=== PATIENT | male | born 1990 | race Caucasian/White ===

== ENCOUNTER → 2018-03-25 07:42 | Outpatient (CLI) | payer OTHER, MEDICAID, SELFPAY ==
--- NOTE | 2018-03-25 07:45 | DI.US.S_ITS ---
PROCEDURE: US SCROTUM INDICATIONS: SCROTAL LUMP TECHNIQUE: Real-time scanning was performed of the scrotum and testicles, with image documentation. Color and pulse Doppler interrogation was performed of both testicles. COMPARISON: [facility], , TESTICLE IMAGING, 04/18/2015, 13:18. [facility], , TESTICLE IMAGING, 10/31/2010, 10:40. FINDINGS: Right: Testicle is normal in size at 5.0 x 2.6 x 3.6 cm, and homogenous in echotexture. Epididymis is normal in overall size and morphology. No hydrocele or varicoceles. Overlying scrotal skin is normal in thickness. Previously seen epididymal cysts have resolved in the interim. Left: Testicle is normal in size at 4.6 x 2.9 x 3.1 cm, and homogeneous in echotexture. Epididymis is normal in overall size and morphology. No hydrocele or varicoceles. Overlying scrotal skin is normal in thickness. Previously seen epididymal cyst have resolved in the interim. Doppler: Color and pulse Doppler demonstrate normal and symmetric arterial flow in both testicles. IMPRESSION: 1. No ultrasound findings to explain the patient's palpable scrotal lump. 2. Previously seen epididymal cysts appear to have resolved in the interim. 3. No testicular mass, epididymal orchitis, or evidence of testicular torsion. Dictated by: Yazan Self M.D. on 03/25/2018 at 8:46 Approved by: Yazan Self M.D. on 03/25/2018 at 8:52
== END ==
PROVIDERS: Visit Provider Registered Nurse
DX: N50.9 Disorder of male genital organs, unspecified (principal)
CPT/HCPCS: 76870

== ENCOUNTER → 2018-05-31 08:03 | Outpatient (CLI) | payer OTHER, MEDICAID, SELFPAY ==
[2018-05-31 08:57] LABS: Alanine Aminotransferase 29 IU/L (21-72); Albumin 4.7 g/dL (3.5-5.0); Albumin Globulin Ratio 1.7 (1.0-2.8); Alkaline Phosphatase 53 U/L (38-126); Aspartate Aminotransferase 23 IU/L (17-59); BUN Creatinine Ratio 11.1 (6-22); Bilirubin Total 0.6 mg/dL (0.2-1.3); Blood Urea Nitrogen 10 mg/dL (9-20); Calcium 9.6 mg/dL (8.4-10.2); Carbon Dioxide 30 mmol/L (22-32); Chloride 101 mmol/L (98-107); Cholesterol 168 mg/dL (140-199); Estimated Glomerular Filt Rate > 60.0 mL/min (>60); Globulin 2.7 g/dL (1.7-4.1); Glucose 73 mg/dL (70-100); HDL Cholesterol 49 mg/dL (40-60); HEMOLYSIS < 15 (0-50); LDL Cholesterol Calculated 101 mg/dL (<100); Potassium 4.4 mmol/L (3.4-5.1); Sodium 142 mmol/L (137-145); Total Protein 7.4 g/dL (6.3-8.2); Triglycerides 89 mg/dL (35-150)
[2018-05-31 09:10] LABS: Add Manual Diff / Slide Review NO; Basophils Absolute Auto 100 /uL (0-100); Basophils Percent Auto 1.3 % (0-2); Eosinophils Absolute Auto 100 /uL (0-450); Eosinophils Percent Auto 2.5 % (2-4); Hematocrit 45.8 % (41-53); Hemoglobin 15.6 g/dL (13.5-17.5); Lymphocytes Absolute Auto 1400 /uL (1100-4500); Lymphocytes Percent Auto 28.5 % (25-40); Mean Corpuscular Hemoglobin 32.8 PG (26-34); Mean Corpuscular Volume 96.5 fL (80-100); Monocytes Absolute Auto 400 /uL (0-900); Monocytes Percent Auto 7.7 % (3-14); Neutrophils Absolute Auto 2900 /uL (1500-7000); Platelet Count 194 X10^3/uL (150-400); Red Blood Cell Count 4.74 X10^6/uL (4.5-5.9); Red Cell Distribution Width 12.4 % (11.6-14.8); White Blood Cell Count 4.8 X10^3/uL (4.5-11.0)
[2018-05-31 10:39] LABS: TSH w/ Reflex to FT4 1.94 uIU/mL (0.47-4.68)
== END ==
PROVIDERS: PCP Nurse Practitioner; Visit Provider Nurse Practitioner
DX: R07.1 Chest pain on breathing (principal)
CPT/HCPCS: 36415; 80053; 80061; 84443; 85025

== ENCOUNTER → 2018-05-31 08:31 | Outpatient (CLI) | payer OTHER, MEDICAID, SELFPAY ==
--- NOTE | 2018-05-31 08:34 | DI.RAD.S_ITS ---
PROCEDURE: XR CHEST 2V INDICATIONS: Intermittent rib/breathing CP that improves with exercise TECHNIQUE: 2 views of the chest were acquired. COMPARISON: [facility], RG, XR SHOULDER 3V LEFT, 01/14/2003, 10:22. FINDINGS: Surgical changes and devices: None. Lungs and pleura: Right lung is totally opacified relative to the left. No pleural effusions or pneumothorax. Mediastinum: Mediastinal contours are normal. Heart size is normal. Bones and chest wall: No suspicious bony abnormalities. Soft tissues appear unremarkable. IMPRESSION: Right lung subtly opacified relative to the left which could represent right lung opacification or soft tissue attenuation of the right lung versus decrease of attenuation of the left lung which is absence of the left pectoralis musculature. Finding is not appear significantly changed where visualized and a prior shoulder series obtained 01/14/2013 may represent a congenital process. If there is continued clinical concern for chest pathology, then a CT scan of the chest without contrast we considered for further evaluation. Dictated by: Sally Gordillo MD, PhD on 05/31/2018 at 9:51 Approved by: Sally Gordillo MD, PhD on 05/31/2018 at 9:56
== END ==
PROVIDERS: PCP Nurse Practitioner; Visit Provider Nurse Practitioner
DX: R07.1 Chest pain on breathing (principal)
CPT/HCPCS: 36415; 71046; 80053; 80061; 84443; 85025

== ENCOUNTER → 2019-01-02 10:04 | Outpatient (CLI) | payer OTHER, SELFPAY | PROVIDERS: PCP Nurse Practitioner; Visit Provider Nurse Practitioner | DX: L08.9 Local infection of the skin and subcutaneous tissue, unspecified (principal); S81.819A Laceration without foreign body, unspecified lower leg, initial encounter; T14.8XXA Other injury of unspecified body region, initial encounter | CPT/HCPCS: 87070; 87075; 87077; 87147; 87186; 87205 ==

== ENCOUNTER 2024-09-16 01:02 | Emergency (ER) | payer OTHER, SELFPAY ==
[2024-09-16] VITALS (10 sets, daily range): BP systolic 137–147; BP diastolic 81–103; PULSE 69–80; RESP 12–16; TEMP 36.2; O2SAT 96–98; BMI 24.0
[2024-09-16] MEDS: ALBUTEROL 2.5 MG/3 ML NEB (ADULT) INH (01:49)
[2024-09-16 02:26] LABS: Influenza A - CEPHEID Flu A NEGATIVE (NEGATIVE); Influenza B - CEPHEID Flu B NEGATIVE (NEGATIVE)
--- NOTE | 2024-09-16 02:50 | ED_ITS ---
HPI - General Adult General Chief complaint: Shortness of Breath/Dyspnea Stated complaint: HBP 142/99 Time Seen by Provider: 09/16/24 01:33 Source: patient Mode of arrival: Ambulatory History of Present Illness HPI narrative: 34-year-old male has complaint of shortness of breath. 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 Also ongoing alcohol use, last drink a few days ago, no shaking chills or fevers, does not believe himself to be going through alcohol withdrawal, declines referral for social media director or detox outpatient resources. Related Data Previous Rx's ?Medication ?Instructions ?Recorded prednisone 20 mg tablet 40 mg (2 x 20 mg) PO DAILY 5 days 09/16/24 #10 tabs Allergies Allergy/AdvReac Type Severity Reaction Status Date / Time No Known Drug Allergies Allergy Verified 09/16/24 01:09 Patient History Medical History (Updated 09/16/24 @ 03:09 by Vito Panda MD) Varicocele Surgical History (Updated 03/03/18 @ 23:02 by Tiesha Knowles) History of hernia surgery Left forearm fracture Male circumcision (~2003) Status post hernia repair Family History (Updated 06/10/13 @ 00:00 by Conversion Provider) Father Hyperlipidemia Hypertension Mother Breast cancer Social History Smoking Status: Former smoker alcohol intake: current (one beer a day right now) substance use type: does not use Smoking Status: Former smoker Alcohol type: beer Exam Narrative Exam Narrative: GENERAL: Well-developed patient, in mild distress. HEAD: Atraumatic. Normocephalic. EYES: Pupils equal round and reactive. Extraocular motions intact. No scleral icterus. No injection or drainage. ENT: Nose without bleeding, purulent drainage. Throat without erythema, tonsillar hypertrophy or exudate. Airway patent. NECK: Trachea midline. Non tender CARDIOVASCULAR: Regular rate and rhythm without murmurs, gallops, or rubs. RESPIRATORY: Clear to auscultation. Breath sounds equal bilaterally. No wheezes, rales, or rhonchi. GASTROINTESTINAL: Abdomen soft, non-tender, nondistended. EXTREMITIES: No edema or joint tenderness. BACK: Nontender without deformity or crepitance. No flank tenderness. NEURO: AOx3. Motor functions grossly nonfocal. SKIN: No rash or erythema of visible areas Initial Vital Signs Initial Vital Signs: Vital Signs Temperature 97.1 F L 09/16/24 01:11 Pulse Rate 80 09/16/24 01:11 Respiratory Rate 16 09/16/24 01:11 Blood Pressure 147/100 H 09/16/24 01:11 Pulse Oximetry 98 09/16/24 01:11 Oxygen Delivery Method Room Air 09/16/24 01:11 Course Orders Ordered: ED Orders 09/16/24 01:40 Covid-19 + FLU A/B + RSV - PCR Stat 09/16/24 02:53 XR chest 2V Stat Discontinued Medications Albuterol (Albuterol 2.5 Mg/3 Ml Neb (Adult)) 2.5 mg INH NOW ONE Stop: 09/16/24 01:34 Last Admin: 09/16/24 01:49 Dose: 2.5 mg Documented By: GWENDOLYN Albuterol (Albuterol Hfa Prepack) 1 box MISC DIRECTED ONE Stop: 09/16/24 03:11 Last Admin: 09/16/24 03:54 Dose: 1 box Documented By: Prednisone (Prednisone 20 Mg Tablet) 60 mg PO NOW ONE Stop: 09/16/24 03:08 Last Admin: 09/16/24 03:41 Dose: 60 mg Documented By: JASON Vital Signs Vital signs: Vital Signs - 8 hr 09/16/24 01:11 09/16/24 01:46 09/16/24 01:47 Temperature 97.1 F L Pulse Rate 80 76 73 Respiratory Rate 16 Blood Pressure 147/100 H Pulse Oximetry 98 98 98 Oxygen Delivery Method Room Air Oxygen Flow Rate Fraction of Inspired Oxygen 09/16/24 01:47 09/16/24 01:49 09/16/24 02:00 Temperature Pulse Rate 76 Respiratory Rate 12 Blood Pressure 142/90 H 147/96 H Pulse Oximetry 96 Oxygen Delivery Method Room Air Oxygen Flow Rate 0 Fraction of Inspired Oxygen 21 09/16/24 02:00 09/16/24 02:30 09/16/24 02:30 Temperature Pulse Rate 79 Respiratory Rate Blood Pressure 144/87 H Pulse Oximetry 98 97 Oxygen Delivery Method Oxygen Flow Rate Fraction of Inspired Oxygen 09/16/24 03:00 09/16/24 03:00 09/16/24 03:30 Temperature Pulse Rate 77 75 Respiratory Rate Blood Pressure 140/103 H Pulse Oximetry 98 97 Oxygen Delivery Method Oxygen Flow Rate Fraction of Inspired Oxygen 09/16/24 03:30 09/16/24 04:00 09/16/24 04:00 Temperature Pulse Rate 69 Respiratory Rate Blood Pressure 142/81 H 138/101 H Pulse Oximetry 96 Oxygen Delivery Method Oxygen Flow Rate Fraction of Inspired Oxygen 09/16/24 04:30 09/16/24 04:30 Temperature Pulse Rate 78 Respiratory Rate Blood Pressure 137/81 Pulse Oximetry 97 Oxygen Delivery Method Room Air Oxygen Flow Rate Fraction of Inspired Oxygen Medical Decision Making Lab Data Labs: Lab Results 09/16/24 Range/Units 01:40 SARS-CoV-2 (PCR) Negative (Negative) Influenza A (RT-PCR) Flu a negative (NEGATIVE) Influenza B (RT-PCR) Flu b negative (NEGATIVE) RSV (PCR) Negative (Negative) MDM Narrative Medical decision making narrative: 34-year-old male with shortness of breath after white dust exposure from dry wall during a brief period where he did not have respirator/filter protection in place. Lungs clear. Afebrile, sirs screen negative. Speaking in full sentences. Chest x-ray no acute changes, see tele radiology report. Breathing treatment, symptoms felt better. Oral prednisone. Prescription for further prednisone pulse sent to his pharmacy. Albuterol inhaler/spacer dispensed, 2 puffs 4 times daily then as needed. Advised patient to wear respirator protection at work to prevent exposure to particular matter. Recheck symptoms with regular provider advised later this week. Return precautions discussed. Discharged home. 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 Ongoing shortness of breath since that time. Given breathing treatment, improvement of symptoms. Oral steroid given, 1st prednisone dose given in the emergency department, prescription for further prednisone pulse dosing next few days sent to your pharmacy. Inhaler/spacer dispensed from the emergency department. Recheck advised with PCP later this week. Return to this/nearest emergency department for any change worsening symptoms or any concerns prior. Advised to wear respiratory rate or protection around juhi work environments to protect lungs. Prescriptions: New prednisone 20 mg tablet 40 mg PO DAILY 5 Days Qty: 10 0RF Referrals: Joelle Hood ARNP [Primary Care Provider, Family Practice] Stand Alone Forms: Patient Portal/API
--- NOTE | 2024-09-16 02:53 | DI.RAD.S_ITS ---
PROCEDURE: XR CHEST 2V INDICATIONS: dyspnea, cough TECHNIQUE: 2 views of the chest were acquired. COMPARISON: [facility], CR, XR CHEST 2V, 05/31/2018, 8:37. FINDINGS: Surgical changes and devices: None. Lungs and pleura: Lungs are clear. No pleural effusions or pneumothorax. Mediastinum: Mediastinal contours are normal. Heart size is normal. Bones and chest wall: No suspicious bony abnormalities. Soft tissues appear unremarkable. IMPRESSION: No acute cardiopulmonary abnormality is seen. This report is concordant with the overnight preliminary interpretation. Dictated by: Chema Jamison M.D. on 09/16/2024 at 7:57 Approved by: Chema Jamison M.D. on 09/16/2024 at 8:00
[2024-09-16 02:56] LABS: COVID-19 CEPHEID 4-PLEX PCR Negative (Negative)
[2024-09-16] MEDS: ALBUTEROL HFA PREPACK 1 BOX MISC (03:54)
== END 2024-09-16 04:35 | disposition home or self-care (01) ==
PROVIDERS: Emergency Provider Emergency Medicine; PCP Nurse Practitioner
DX: R06.02 Shortness of breath (principal); Z57.2 Occupational exposure to dust; X58.XXXA Exposure to other specified factors, initial encounter; Y99.0 Civilian activity done for income or pay
CPT/HCPCS: 0241U; 71046; 94640; 99283; J7613